=== PATIENT | female | born 1995 | race Caucasian/White ===

== ENCOUNTER 2019-12-21 19:23 | Emergency (ER) | payer BC, SELFPAY ==
[2019-12-21 19:42] VITALS: BP 134/82; PULSE 94; RESP 20; TEMP 36.9; O2SAT 100; BMI 23.0
--- NOTE | 2019-12-21 20:07 | HMH.EDUTC ---
[facility] [place] Clinical Impression: COVID-19 virus test result unknown, Exposure to COVID-19 virus Disposition: Home, Self-Care Condition on Discharge: Good Instructions: Preventing the Spread of Coronavirus Discharge Instructions Additional Instructions: No sign of a bacterial infection. Likely viral. Viruses can take 7-14 days to run their course. Nasal saline and bulb syringe or nose Lisbeth to remove nasal drainage to help with nasal congestion. Hard to eat, drink, sleep with nasal congestion so important to keep this cleaned out. Monitor temp. Tylenol or Motrin as needed for pain or fever Encourage fluids, water, Gatorade, Powerade, Pedialyte if /toddler/child Warm salt water gargles Warm fluids Sore throat lozenges Sleep elevated Humidifier/vaporizer covid swab was sent. These results are typically sent to the primary care or [facility] days for results Be sure you follow-up in 2-3 days if no improvement so we can review the results and treat if necessary if you do not have a primary care, I recommend to get 1 but in the meantime, call for results. Follow-up immediately for new or worsening symptoms or no noticeable improvement over the next 48-72 hours. quarantine until covid test is known Referrals: Val Mota [Primary Care Provider] - Forms: Work/School Release Time of Disposition: 20:15 Medical Decision Making - Eric Inquiry Pt receiving controlled substance: No Vital Signs: 12/21/19 19:42 Temperature 98.5 F Temperature Source Oral Pulse Rate [Bilateral Brachial] 94 H Respiratory Rate 20 Blood Pressure [Right Arm] 134/82 Blood Pressure Mean [Right Arm] 99 Blood Pressure Source [Right Arm] Automatic Cuff Blood Pressure Position [Right Arm] Sitting 02 Sat by Pulse Oximetry 100 Oxygen Delivery Method Room Air Orders (Tests/Meds): ORDERS Category Date Time Status SARS-CoV-2, LUBA Stat Lab 12/21/19 20:03 Ordered [facility] [place] HPI - General Chief complaint: Urgent [facility] Stated complaint: Nausea, dizziness, diarrhea COVID test Time Seen by Provider: 12/21/19 20:08 Mode of Arrival: Ambulatory Source of Information: Patient Limitations: No Limitations Description of Symptoms (Recalled from Triage Doc. by RN): NAUSEA, VOMITING, FATIGUE, DIZZINESS, DIARRHEA HEENT Symptoms (Recalled from RN notes): No Resp Symptoms (Recalled from RN notes): Yes Skin Symptoms (Recalled from RN notes): No MS Symptoms (Recalled from RN notes): No Functional Status (Recalled from RN notes): NONE - History of Present Illness Provider Complaint: 24-year-old female presents for fatigue, nausea vomiting diarrhea, low-grade fever, and stuffy nose for 2 days. 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 Patient states this morning she had an episode where she heard ringing in her ears and blacked out was present and said patient instantly woke up. Patient states she drinks some liquids and ate a couple pieces of chicken and has felt better since then. Patient does not want to go to the ER for further evaluations she just request covid testing - Related Data Home Medications Medication Instructions Recorded Confirmed No Known Home Medications 12/21/19 12/21/19 Allergies Allergy/AdvReac Type Severity Reaction Status Date / Time No Known Allergies Allergy Verified 12/21/19 19:39 - Worker's Comp Is this a Worker's Comp case?: No [facility] History - Hepatitis A Screen Drug use history?: No High risk sexual behaviors?: No History of sexually transmitted infection?: No Currently employed?: No Childcare worker?: No Do you have indoor plumbing?: Yes Do you have electricity?: Yes Attestation statement:: This patient has been screened for Hepatitis A risk factors. I have reviewed the patient's past medical history: Yes Medical History: Denies:: Cancer, Diabetes Mellitus Type 1, Diabetes Mellitus Type 2, Internal Pac
[2019-12-21 20:13] VITALS: BP 134/82; PULSE 94; RESP 20; TEMP 36.9
[2019-12-23 13:37] LABS: Covid-19 Nasal PCR Sendout Lex NOT DETECTED
== END 2019-12-21 20:35 | disposition home or self-care (01) ==
PROVIDERS: Emergency Provider Nurse Practitioner Family; PCP Family Medicine
DX: Z20.828 Contact with and (suspected) exposure to other viral communicable diseases (principal); R50.9 Fever, unspecified; R11.0 Nausea
CPT/HCPCS: 99201; U0004